=== PATIENT | male | born 1945 | race African-American/Black ===

== ENCOUNTER → 2019-06-13 | Emergency (ER) | payer SELFPAY ==
[~2019-06-13] VITALS: Ht 175.3 cm; Wt 77.1 kg
[2019-06-13 16:22] VITALS: BP 177/75
== END | disposition home or self-care (01) ==
LOC: ER 16:09
DX: I10 Essential (primary) hypertension (principal); F41.9 Anxiety disorder, unspecified; Z76.0 Encounter for issue of repeat prescription

== ENCOUNTER 2021-07-29 13:21 | Inpatient (IN) | payer MEDICARE, OTHER ==
[~2021-07-29] VITALS: Ht 175.3 cm; Wt 83.5 kg
[2021-07-29] MEDS ORDERED: amLODIPine BESYLATE 5 MG TAB PO ONE (13:45)
[2021-07-29] MEDS ORDERED: LABETALOL HCL 5 MG/ML 4ML SYRINGE IV ONE (13:45)
[2021-07-29] MEDS ORDERED: LABETALOL HCL 5 MG/ML ML 20ML VIAL IV ONE (14:12)
[2021-07-29 14:26] LABS: Hemoglobin 13.2 g/dL (13.5-17.5)
[2021-07-29 14:28] LABS: Hematocrit 41.9 % (41.0-53.0); Mean Corpuscular Hemoglobin 24.9 pg (28.0-32.0); Mean Corpuscular Hgb Conc. 31.6 g/dL (32.0-36.0); Mean Corpuscular Volume 78.9 fL (80.0-100.0); Red Blood Cells 5.31 10^6/uL (4.5-5.90); Red Cell Distribution Width 14.6 % (11.8-14.3); White Blood Cell 3.2 10^3/uL (4.4-10.8)
[2021-07-29 14:39] LABS: Band Neutrophils % (manual) 0; Basophils % (manual) 0 (0.0-2.0); Blast Cells 0; Metamyelocytes % 0; Myelocytes % 0; Promyelocytes % 0; Reactive Lymphocytes 0
[2021-07-29 14:42] LABS: Albumin 3.6 g/dL (3.4-5.0); Calcium 8.6 mg/dL (8.5-10.1); Potassium 3.2 mmol/L (3.5-5.1)
[2021-07-29 14:48] LABS: BUN/Creatinine Ratio 11.3; Bilirubin, Total 0.9 mg/dL (0.2-1.0); Total Protein 6.9 g/dL (6.4-8.2)
[2021-07-29 15:40] LABS: Eosinophils % (manual) 2 (0-7); Lymphocytes % (manual) 64 (10.0-50.0); Monocytes % (manual) 2 (0-12)
[2021-07-29] MEDS ORDERED: hydrALAZINE HCL 20 MG/ML VL IV ONE (17:45)
[2021-07-29] MEDS ORDERED: MORPHINE SULFATE INJECTION 2 MG/ML SYRG IV PRN ×2 (18:15→19:15)
[2021-07-29] MEDS ORDERED: NITROGLYCERIN 0.4 MG SL TAB SL PRN (18:15)
[2021-07-29] MEDS ORDERED: LORazepam 2MG/ML-1ML VIAL IV ONE (18:45)
[2021-07-29] MEDS ORDERED: FAMOTIDINE (10MG/ML) 2ML VL IV ONE (19:15)
[2021-07-29] MEDS ORDERED: HYDROcodone-ACET 5/325MG TAB PO ONE (19:15)
[2021-07-29] MEDS ORDERED: LORazepam 0.5 MG TAB PO PRN (19:15)
[2021-07-29] MEDS ORDERED: HYDROcodone-ACET 5/325MG TAB PO PRN (19:15)
[2021-07-29] MEDS ORDERED: LABETALOL HCL 5 MG/ML 4ML SYRINGE IV PRN (19:15)
[2021-07-30] MEDS: hydrALAZINE HCL 20 MG/ML VL IV ONE ×2 (00:11→21:46)
[2021-07-30 01:51] LABS: INR 1.06 (0.9-1.15); Partial Thromboplastin Time 21.4 sec (23.6-33.0)
[2021-07-30] MEDS: hydrALAZINE HCL 20 MG/ML VL IV PRN ×2 (06:41→15:12)
[2021-07-30 08:49] LABS: Alcohol, Urine < 3.0 mg/dL (0-10); Amphetamine Screen, Urine NEGATIVE (NEGATIVE); Barbiturate Scree,Urine NEGATIVE (NEGATIVE); Benzodiazephine Screen, Urine NEGATIVE (NEGATIVE); Cannabinoid Screen, Urine NEGATIVE (NEGATIVE); Cocaine Screen, Urine NEGATIVE (NEGATIVE); Opiate Scree,Urine NEGATIVE (NEGATIVE); Phencyclidine Screen, Urine NEGATIVE (NEGATIVE)
[2021-07-30] MEDS ORDERED: ENOXAPARIN SOD 40 MG/0.4 ML SYRINGE SC SCH (10:00)
[2021-07-30 10:20] LABS: Basophils # (auto) 0 10 ^3/uL (0-0.2); Eosinophils # (auto) 0 10 ^3/uL (0-0.8); Hemoglobin 14.2 g/dL (13.5-17.5); Monocytes # (auto) 0.4 10 ^3/uL (0-1.3); Nucleated Red Blood Cells % 0.1 %; Red Blood Cells 5.66 10^6/uL (4.5-5.90); White Blood Cell 6.5 10^3/uL (4.4-10.8)
[2021-07-30 10:23] LABS: Basophils % (auto) 0.6 % (0.0-2.0); Eosinophils % (auto) 0.7 % (0.0-7.0); Lymphocytes # (auto) 1.7 10 ^3/uL (0.4-5.4); Lymphocytes % (auto) 26.7 % (10.0-50.0); Mean Corpuscular Hgb Conc. 32.2 g/dL (32.0-36.0); Mean Corpuscular Volume 77.8 fL (80.0-100.0); Monocytes % (auto) 6.8 % (0.0-12.0); Neutrophils # (auto) 4.2 10 ^3/uL (1.6-8.6); Neutrophils % (auto) 65.2 % (37.0-80.0); Red Cell Distribution Width 14.5 % (11.8-14.3)
[2021-07-30 10:46] LABS: INR 1.07 (0.9-1.15); Partial Thromboplastin Time 28.9 sec (23.6-33.0)
[2021-07-30 11:30] LABS: Albumin 3.6 g/dL (3.4-5.0); BUN/Creatinine Ratio 8.3; Bilirubin, Total 1.2 mg/dL (0.2-1.0); Phosphorus 1.6 mg/dL (2.5-4.90); Potassium 3.1 mmol/L (3.5-5.1); Total Protein 7.5 g/dL (6.4-8.2)
[2021-07-30 14:36] LABS: Urine Bacteria FEW /hpf (None Seen); Urine Blood Negative /uL (Negative); Urine Specific Gravity 1.015 (1.001-1.035); Urine WBC <1 /hpf (0 - 3)
[2021-07-30] MEDS ORDERED: LORA2TAB89 PO (14:40)
[2021-07-30] MEDS ORDERED: LOSA100T25 PO (14:42)
[2021-07-30] MEDS ORDERED: NIFE1TAB36 PO (14:42)
[2021-07-30] MEDS ORDERED: LOSARTAN POTASSIUM 50 MG TAB PO ONE (19:45)
[2021-07-30] MEDS ORDERED: POTASSIUM CHL 20 Meq TABLET PO ONE (19:45)
[2021-07-30] MEDS ORDERED: POTASSIUM PHOSPHATE 44 MEQ in D5W 5% 250 ML IV ONE (20:00)
[2021-07-30] MEDS ORDERED: FAMOTIDINE (10MG/ML) 2ML VL IV SCH (22:00)
[2021-07-31] MEDS: LABETALOL HCL 5 MG/ML ML 20ML VIAL IV PRN (08:57)
[2021-07-31] MEDS ORDERED: LORazepam 2MG/ML-1ML VIAL IV PRN (09:00)
[2021-07-31] MEDS ORDERED: LORazepam 2MG/ML-1ML VIAL ONE (09:01)
[2021-07-31] MEDS: ENOXAPARIN SOD 40 MG/0.4 ML SYRINGE SC SCH (10:00)
[2021-07-31] MEDS: NIFEdipine ER 30 MG TAB PO SCH (10:00)
[2021-07-31 11:06] VITALS: BP 164/98
[2021-07-31 11:21] LABS: BUN/Creatinine Ratio 8.8; Calcium 9.2 mg/dL (8.5-10.1); Phosphorus 2.2 mg/dL (2.5-4.90); Potassium 3.2 mmol/L (3.5-5.1)
[2021-07-31] MEDS: hydrALAZINE HCL 20 MG/ML VL IV PRN (12:24)
[2021-07-31] MEDS: LOSARTAN POTASSIUM 50 MG TAB PO SCH (22:32)
[2021-08-01] MEDS: hydrALAZINE HCL 20 MG/ML VL IV PRN (04:34)
[2021-08-01 07:02] LABS: Potassium 3.2 mmol/L (3.5-5.1)
[2021-08-01 07:08] LABS: BUN/Creatinine Ratio 13.9; Calcium 9.1 mg/dL (8.5-10.1)
[2021-08-01 08:00] VITALS: BP 125/52
[2021-08-01 09:00] VITALS: BP 125/52
[2021-08-01] MEDS: NIFEdipine ER 30 MG TAB PO SCH (10:14)
[2021-08-01] MEDS: ENOXAPARIN SOD 40 MG/0.4 ML SYRINGE SC SCH (10:14)
[2021-08-01 13:00] VITALS: BP 130/69
[2021-08-01] MEDS ORDERED: POTASSIUM CHL 20 Meq TABLET PO ONE (13:45)
[2021-08-01 17:00] VITALS: BP 131/68
[2021-08-01] MEDS: LOSARTAN POTASSIUM 50 MG TAB PO SCH (22:00)
[2021-08-02 04:51] VITALS: BP 123/53
[2021-08-02 09:00] VITALS: BP 143/65
[2021-08-02] MEDS: NIFEdipine ER 30 MG TAB PO SCH (10:00)
[2021-08-02] MEDS: ENOXAPARIN SOD 40 MG/0.4 ML SYRINGE SC SCH (10:00)
[2021-08-02 13:00] VITALS: BP 135/72
[2021-08-02] MEDS ORDERED: POTASSIUM CHL 10 Meq TABLET PO ONE (16:30)
[2021-08-02 22:00] VITALS: BP 182/81
[2021-08-02] MEDS: LOSARTAN POTASSIUM 50 MG TAB PO SCH (22:22)
[2021-08-02 23:36] VITALS: BP 154/83
[2021-08-03] MEDS ORDERED: LORazepam 0.5 MG TAB PO PRN (00:15)
[2021-08-03 05:00] VITALS: BP 148/72
[2021-08-03 08:46] VITALS: BP 162/74
[2021-08-03] MEDS: ENOXAPARIN SOD 40 MG/0.4 ML SYRINGE SC SCH (10:00)
[2021-08-03 12:41] VITALS: BP 148/80
[2021-08-03] MEDS: NIFEdipine ER 30 MG TAB PO SCH (15:30)
[2021-08-03 17:00] VITALS: BP 150/98
[2021-08-03 20:15] VITALS: BP 174/84
[2021-08-03] MEDS: LOSARTAN POTASSIUM 50 MG TAB PO SCH (21:03)
[2021-08-03 22:00] VITALS: BP 162/79
[2021-08-03] MEDS: LABETALOL HCL 5 MG/ML ML 20ML VIAL IV PRN (22:30)
[2021-08-04 05:00] VITALS: BP 141/74
[2021-08-04] MEDS: ENOXAPARIN SOD 40 MG/0.4 ML SYRINGE SC SCH (10:00)
[2021-08-04] MEDS: NIFEdipine ER 30 MG TAB PO SCH (10:00)
[2021-08-04 13:00] VITALS: BP 136/73
[2021-08-04 16:38] VITALS: BP 145/76
[2021-08-04 20:00] VITALS: BP 151/80
[2021-08-04 20:57] VITALS: BP 151/80
[2021-08-04] MEDS: LOSARTAN POTASSIUM 50 MG TAB PO SCH (21:49)
[2021-08-05 00:26] LABS: BUN/Creatinine Ratio 13.3; Calcium 8.8 mg/dL (8.5-10.1); Potassium 4.1 mmol/L (3.5-5.1)
[2021-08-05 05:22] VITALS: BP 152/72
[2021-08-05] MEDS: ENOXAPARIN SOD 40 MG/0.4 ML SYRINGE SC SCH (08:58)
[2021-08-05 09:00] VITALS: BP 172/91
[2021-08-05] MEDS: NIFEdipine ER 30 MG TAB PO SCH (10:00)
[2021-08-05 13:00] VITALS: BP 172/82
[2021-08-05] MEDS ORDERED: NIFE1TAB36 PO (16:25)
[2021-08-05] MEDS ORDERED: LOSA100T25 PO (16:25)
[2021-08-05 16:30] VITALS: BP 197/80
[2021-08-05] MEDS ORDERED: cloNIDine HCL 0.1 MG TAB PO ONE (16:30)
[2021-08-05 18:36] VITALS: BP 139/77
[2021-08-05 21:00] VITALS: BP 148/77
[2021-08-05] MEDS: LOSARTAN POTASSIUM 50 MG TAB PO SCH (23:08)
[2021-08-06 05:00] VITALS: BP 159/87
[2021-08-06] MEDS: ENOXAPARIN SOD 40 MG/0.4 ML SYRINGE SC SCH (09:00)
[2021-08-06] MEDS: NIFEdipine ER 30 MG TAB PO SCH (09:00)
== END 2021-08-06 17:37 | disposition home or self-care (01) | DRG 291 ==
LOC: ER 13:21 → EDBD 13:21 → TELE 18:13 → TELE-WESTW 07-31 10:16
PROVIDERS: ADMIT Hospitalist; ATTEND Internal Medicine
DX: I11.0 Hypertensive heart disease with heart failure (principal); I50.33 Acute on chronic diastolic (congestive) heart failure; I16.1 Hypertensive emergency; I67.4 Hypertensive encephalopathy; F41.9 Anxiety disorder, unspecified; E66.01 Morbid (severe) obesity due to excess calories; Z20.822 Contact with and (suspected) exposure to COVID-19; E78.5 Hyperlipidemia, unspecified; F32.A Depression, unspecified; Z68.27 Body mass index [BMI] 27.0-27.9, adult; Z86.73 Personal history of transient ischemic attack (TIA), and cerebral infarction without residual deficits; Z79.899 Other long term (current) drug therapy
CPT/HCPCS: 36415; 70450; 71045; 80048; 80053; 80061; 80307; 81001; 83036; 83735; 83880; 84100; 84443; 84484; 85007; 85025; 85027; 85379; 85610; 85730; 87040; 87086; 87426; 93005; 93306; 96374; 96375; 97163; G0378; J3490; J7060

== ENCOUNTER 2022-07-16 14:07 | Emergency (ER) | payer MEDICARE, BC ==
[~2022-07-16] VITALS: Ht 177.8 cm; Wt 110.0 kg
[~2022-07-16 14:07] MED LIST: LORA2TAB89 PO; LOSA100T25 PO; NIFE1TAB36 PO
[2022-07-16] MEDS ORDERED: cloNIDine HCL 0.1 MG TAB PO ONE (14:30)
[2022-07-16] MEDS ORDERED: LORA2TAB89 PO (14:40)
[2022-07-16] MEDS ORDERED: LOSA100T25 PO (14:40)
[2022-07-16] MEDS ORDERED: NIFE1TAB36 PO (14:40)
[2022-07-16 16:06] VITALS: BP 149/83
== END 2022-07-16 16:09 | disposition home or self-care (01) ==
LOC: ER 14:07 → EDBD 14:07 → ER 16:09
DX: I16.0 Hypertensive urgency (principal); F41.8 Other specified anxiety disorders; Z79.899 Other long term (current) drug therapy; Z88.1 Allergy status to other antibiotic agents

== ENCOUNTER 2025-01-30 10:55 | Outpatient (CLI) | payer MEDICARE, BC ==
[2025-01-30 11:57] LABS: Urine Protein, UAD 1+ (Negative)
[2025-01-30 12:19] LABS: Hematocrit 38.7 % (41.0-53.0); Hemoglobin 12.3 g/dL (13.5-17.5); Mean Corpuscular Hemoglobin 25.6 pg (28.0-32.0); Mean Corpuscular Volume 80.3 fL (80.0-100.0); Nucleated Red Blood Cells % 0.2 %
[2025-01-30 12:41] LABS: Alanine Aminotransferase 16 U/L (7-40); Albumin 4.7 g/dL (3.2-4.8); Alkaline Phosphatase 84 U/L (46-116); Anion Gap 8 (5-15); BUN/Creatinine Ratio 7.9 (10.0-20.0); Bilirubin, Total 1.0 mg/dL (0.2-1.0); Blood Urea Nitrogen 10 mg/dL (9-23); Calcium 9.5 mg/dL (8.7-10.4); Carbon Dioxide 29 mmol/L (20-31); Glucose 100 mg/dL (74-106); HDL Cholesterol 48 mg/dL (40-59); Potassium 4.4 mmol/L (3.5-5.1); Sodium 144 mmol/L (136-145); Total Protein 7.2 g/dL (5.7-8.2)
[2025-01-30 12:54] LABS: Chloride 107 mmol/L (98-107); Cholesterol 243 mg/dL (< 200); Triglycerides 158 mg/dL (< 150)
== END 2025-01-30 17:00 | disposition home or self-care (01) ==
LOC: LAB 10:55
PROVIDERS: ATTEND Nurse Practitioner
DX: I10 Essential (primary) hypertension (principal); E78.5 Hyperlipidemia, unspecified; R73.9 Hyperglycemia, unspecified
CPT/HCPCS: 36415; 80053; 80061; 81001; 83036; 84443; 85025

== ENCOUNTER 2025-04-09 20:28 | Inpatient (IN) | payer MEDICARE, BC ==
[~2025-04-09] VITALS: Ht 170.2 cm; Wt 81.0 kg
--- NOTE | 2025-04-09 21:56 | ED.PDOC ---
History of Present Illness HPI Comments 79-year-old male presents with chief complaint of a urinary retention. Patient is a poor historian. He reports on being a resident from [facility] and was sent over by faculty, due to them reporting on patient being altered. Patient states on not feeling altered and only reports being unable to pee all day, today. No reported associated abdominal pain, penile pain, fever, chills, or further symptoms. REVIEW OF SYSTEMS: General: No fever, no chills, HEENT: No neck pain, no blurred vision Cardiac: No chest pain. No palpitations. Lungs: No shortness of breath, GI: No abdominal pain, no vomiting : Urine retention Musculoskeletal: No joint pain , no back pain Skin: No rash, no wound Neuro: No headache, no dizziness, no syncope PHYSICAL EXAM: General: Awake, alert and oriented. No acute distress. Skin: Skin in warm, dry and intact without rashes or lesions. HEENT: The head is normocephalic and atraumatic. Conjunctivae are clear without exudates or hemorrhage. Sclera is non-icteric. Neck: Normal range of motion. No JVD. Cardiac: Regular rate Respiratory: No signs of respiratory distress. No Stridor. Extremities: Upper and lower extremities are atraumatic in appearance without deformity. Abdomen:. No suprapubic tenderness Neurological: The patient is awake, alert and oriented to person, place, and time with normal speech. Speech is clear. There is no facial asymmetry. Psychiatric: Appropriate mood and affect. Good judgement and insight. Chief Complaint: Urinary Time Seen by MD: 21:30 Primary Care Provider: UNKNOWN Reviewed Notes: Nurses Notes, Medications, Allergies Allergies: Coded Allergies: NO KNOWN ALLERGIES (Unverified , 04/10/25) Home Meds Active Scripts Tamsulosin Hcl (Flomax) 0.4 Mg Cap, 0.4 MG PO QPM for 30 Days, #30 CAP 3 Refills Prov:YENIFER AGUILAR 04/11/25 Nifedipine (Nifedipine ER) 30 Mg Tab, 90 MG PO DAILY for 30 Days, #90 TAB Prov:KATE PIERCE MD 07/16/22 Losartan Potassium & Hydrochlo (Hyzaar) 1 Tab Tab, 150 MG PO DAILY for 30 Days, #30 TAB Prov:KATE PIERCE MD 07/16/22 Information Source: Patient Mode of Arrival: EMS Severity: Moderate Timing: Hours Duration: Since onset Prehospital treatment: None Past Medical History PAST MEDICAL HISTORY: Anxiety, HTN Past Medical History (Other): Cardiomegaly Psych disorder Surgical History: Denies all surgeries Family History Family History: Unknown Social History Smoker: Non-Smoker Alcohol: Denies ETOH Use Drugs: Denies Drug Use Lives In: Home Was a procedure done? Was a procedure done?: No Differential Dx Considerations may include: UTI, urinary obstruction, urinary outlet obstruction, renal failure, other X-Ray, Labs, Meds, VS Vital Signs Date Time Temp Pulse Resp B/P (MAP) Pulse Ox O2 Delivery O2 Flow Rate FiO2 04/09/25 23:49 98.0 70 20 157/72 (100) 95 98.0 04/09/25 20:35 98.7 73 18 137/65 97 98.7 Lab Test 04/09/25 21:50 Range/Units White Blood Count 7.7 4.4-10.8 10^3/uL Red Blood Count 5.29 4.5-5.90 10^6/uL Hemoglobin 13.5 13.5-17.5 g/dL Hematocrit 42.1 41.0-53.0 % Mean Corpuscular Volume 79.5 L 80.0-100.0 fL Mean Corpuscular Hemoglobin 25.6 L 28.0-32.0 pg Mean Corpuscular Hemoglobin Concent 32.2 32.0-36.0 g/dL Red Cell Distribution Width 14.1 11.8-14.3 % Platelet Count 170 140-450 10^3/uL Mean Platelet Volume 10.7 6.9-10.8 fL Neutrophils (%) (Auto) 61.4 37.0-80.0 % Lymphocytes (%) (Auto) 29.5 10.0-50.0 % Monocytes (%) (Auto) 8.1 0.0-12.0 % Eosinophils (%) (Auto) 0.6 0.0-7.0 % Basophils (%) (Auto) 0.4 0.0-2.0 % Neutrophils # (Auto) 4.7 1.6-8.6 10 ^3/uL Lymphocytes # (Auto) 2.3 0.4-5.4 10 ^3/uL Monocytes # (Auto) 0.6 0-1.3 10 ^3/uL Eosinophils # (Auto) 0 0-0.8 10 ^3/uL Basophils # (Auto) 0 0-0.2 10 ^3/uL Nucleated Red Blood Cells 0.1 % Sodium Level 144 136-145 mmol/L Potassium Level 3.6 3.5-5.1 mmol/L Chloride Level 105 98-107 mmol/L Carbon Dioxide Level 27 20-31 mmol/L Anion Gap 12 5-15 Blood Urea Nitrogen 36 H 9-23 mg/dL Creatinine 2.60 H 0.700-1.30 mg/dL Glomerular Filtration Rate Calc 24 >90 mL/min BUN/Creatinine Ratio 13.8 10.0-20.0 Serum Glucose 123 H 74-106 mg/dL Calcium Level 9.7 8.7-10.4 mg/dL Time of 1ST Reevaluation: 22:00 Reevaluation 1ST: Unchanged Patient Education/Counseling: Other (For admission) Family Education/Counseling: No Family Present SEPSIS Sepsis Screen Date sepsis recognized/suspect: Apr 09, 2025 Time Sepsis recognized/suspect: 2030 Recent Procedure: No On Antibiotic Therapy: No Respiratory Rate >20: No Heart Rate >90: No Temp<36 C (96.8 F) or >38.3 C: No SBP <90 or MAP <65 mmHG: No New Acute Mental Status Change: No Is the patient on CPAP, BIPAP,: No Physician Orders Bladder (04/09/25 21:37) Straightcath If Unable To Void (04/09/25 22:42) Head Without Contrast (04/09/25 22:44) Vital Signs Date Time Temp Pulse Resp B/P (MAP) Pulse Ox O2 Delivery O2 Flow Rate FiO2 04/09/25 23:49 98.0 70 20 157/72 (100) 95 98.0 04/09/25 20:35 98.7 73 18 137/65 97 98.7 Laboratory Tests Test 04/09/25 21:50 White Blood Count 7.7 10^3/uL (4.4-10.8) Departure 1 Departure Time of Disposition: 22:43 Impression: Primary Impression: Unable to void Disposition: ADMITTED INPATIENT Condition: Stable e-Prescriptions Tamsulosin Hcl (Flomax) 0.4 Mg Cap 0.4 MG PO QPM for 30 Days, #30 CAP 3 Refills Prov: YENIFER AGUILAR RESIDENT 04/11/25 Comments MDM: Patient is stabilized in the emergency department. Patient admitted to hospitalist service for further treatment, evaluation and monitoring. Extensive evaluation was performed in attempt to identify or rule out: (See differential diagnosis section) The following tests were ordered, and results were reviewed by me and discussed with patient: (See diagnostic results section) The following test were independently interpreted by me: N/A I reviewed and agreed with the following test results read by other providers: N/A I reviewed the following notes from the pt's past medical encounters: July 29, 2022 encounter for hypertensive urgency. Decision regarding hospitalization or escalation of hospital level of care: Risk and benefits of admission for further treatment of patient's condition was considered. Due to patient's current clinical condition, high risk of decline and poor outcome if discharged and need for further inpatient management and monitoring, patient will be admitted to the hospital. Critical Care Note Critical Care Time?: No Stability Stability form required: No Heart Score Heart Score: Heart Score Response (Comments) Value History N/A 0 EKG N/A 0 Age N/A 0 Risk Factors N/A 0 Troponin N/A 0 Total 0 I personally scribed for ERIC VITALE MD ([email or web address]) on 04/09/25 at 21:56. Electronically submitted by Davion Burch ([email or web address]). ERIC VITALE MD Apr 09, 2025 21:56
[2025-04-09 22:13] LABS: Chloride 105 mmol/L (98-107); Potassium 3.6 mmol/L (3.5-5.1); Sodium 144 mmol/L (136-145)
[2025-04-09 22:14] LABS: Anion Gap 12 (5-15); Calcium 9.7 mg/dL (8.7-10.4); Carbon Dioxide 27 mmol/L (20-31)
[2025-04-09 22:16] LABS: Hematocrit 42.1 % (41.0-53.0); Hemoglobin 13.5 g/dL (13.5-17.5); Mean Corpuscular Hemoglobin 25.6 pg (28.0-32.0); Mean Corpuscular Volume 79.5 fL (80.0-100.0); Nucleated Red Blood Cells % 0.1 %
[2025-04-09 22:19] LABS: BUN/Creatinine Ratio 13.8 (10.0-20.0)
[2025-04-09 22:21] LABS: Blood Urea Nitrogen 36 mg/dL (9-23); Glucose 123 mg/dL (74-106)
--- NOTE | 2025-04-09 22:22 | DVH ---
Exam: US BLADDER History: Bladder, suspected urinary retention Comparison: None Date: 04/09/2025 09:56 PM Technique: Grayscale and color Doppler ultrasound of the pelvis was obtained. Pre-and postvoid images of the bladder were obtained. Findings: The prostate is enlarged measuring 4.6 x 5.3 x 4.6 cm. The prevoid bladder volume measures 207.8 cc. The patient was not able to void. The urinary bladder a ppears distended with thickened wall. IMPRESSION: 1. Distended urinary bladder with wall thickening. The patient was unable to void. 2. Prostatomegaly. END IMPRESSION:
--- NOTE | 2025-04-09 23:14 | DVH ---
EXAM: CT HEAD WITHOUT CONTRAST INDICATION: Confusion TECHNIQUE: CT of the head without intravenous contrast. Radiation Dose : 1. Head: CT Dose: CTDI volume is 54.3 mGy. Dose-length product is 870.48 mGy*cm The dose indicators for CT are the volume Computed Tomography (CT) Dose Index (CTDIvol) and the Dose Length Product (DLP), and are measured in units of mGy and mGy-cm, respectively. These indicators are not patient dose, but values generated from the CT scanner acquisition factors. The report includes radiation exposure data for exposures received during this examination. COMPARISON: HEAD WITHOUT CONTRAST on DOS: 07/30/21, HEAD WITHOUT CONTRAST on DOS: 07/29/21 FINDINGS: Motion artifact degrades fine detail. No acute territorial infarct, intracranial hemorrhage, or mass effect. There are global involutional changes with compensatory prominence of the ventricles and sulci. Patchy periventricular and subcorti estella white matter hypoattenuation is nonspecific but may be related to small vessel ischemic disease. Chronic deep cerebral lacunar infarcts. The orbits are normal. The paranasal sinuses and mastoid air cells are clear. The osseous structures are unremarkable. IMPRESSION: 1. No acute territorial infarct, intracranial hemorrhage, or mass effect. 2. Age-related involutional changes. Chronic microvascular changes. Chronic lacunar infarcts. 3. If clinical symptoms persist, MRI may be beneficial in further evaluation. Radiation optimization: All CT scans at this facility use at least one of these dose optimization dale hniques: automated exposure control mA and/or kV adjustment per patient size (includes targeted exam s where dose is matched to clinical indication) or iterative reconstruction.
--- NOTE | 2025-04-09 23:59 | DVHHPRES ---
History of Present Illness Resident Creating Document: MARLENE VARGAS RESIDENT History of Present Illness Patient is a 79-year-old male with past medical history of HTN, Anxiety, PTSD, presented to [facility] ED with complaint of urinary retention. Patient reports being a resident at [facility] and was sent to the ED by facility staff due to concerns of altered mental status. However, the patient denies feeling altered and states his primary issue is being unable to urinate all day today. He denies associated abdominal pain, penile pain, fever, chills, or other symptoms. On evaluation in the ED, patient is afebrile, blood pressure are 157/72 mmHg. Initial laps show BUN 36, Creatinine 2.60. Bladder ultrasound shows distended urinary bladder with wall thickening and prostatomegaly. The patient was voided yesterday around 11:00 pm with a yellow color and large amount. Patient is admitted for further evaluation and management. Cardiovascular: HTN Psych: Anxiety Review of Systems Review of Systems Eyes: No Pain, No Vision change, No Conjunctivae inflammation, No Eyelid inflammation, No Other, No Redness ENT: No Ear pain, No Ear discharge, No Nose pain, No Nose discharge, No Nose congestion, No Mouth pain, No Mouth swelling, No Throat pain, No Throat swelling, No Other Cardiovascular: No Chest Pain, No Palpitations, No Orthopnea, No Paroxysmal No Dyspnea, No Edema, No Lt Headedness, No Other Respiratory: No Cough, No Dry, No Shortness of breath, No SOB with exertion, No Wheezing, No Hemoptysis, No Pleuritic Pain, No Sputum, No Other Gastrointestinal: No Nausea, No Vomiting, No Abdominal Pain, No Diarrhea, No Constipation, No Melena, No Hematochezia, No Other Genitourinary: No Dysuria, No Frequency, No Incontinence, No Hematuria, Retention, No Other Musculoskeletal: No other, No neck pain, No shoulder pain, No arm pain, No back pain, No hand pain, No leg pain, No foot pain Skin: No Rash, No Lesions, No Jaundice, No Bruising, No Other Allergies: Coded Allergies: NO KNOWN ALLERGIES (Unverified , 04/10/25) Medications Current Medications Medications Dose Ordered Sig/Hector Route Start Time Stop Time Status Last Admin Dose Admin Sodium Chloride 10 ml Q8HR IV 04/10/25 06:00 UNV Exam Vital Signs Vital Signs Date Time Temp Pulse Resp B/P (MAP) Pulse Ox O2 Delivery O2 Flow Rate FiO2 04/09/25 23:49 98.0 70 20 157/72 (100) 95 98.0 Exam General Appearance: Cooperative. Well developed. Well nourished. NAD Head Exam: Normal inspection Neck Exam: Normal inspection. Non-tender. Normal alignment Pulmonary/Respiratory: Chest non-tender. Clear bilateral breath sounds, no crackles, no wheezing. Cardiovascular/Chest: Regular rate and rhythm. No murmurs. No JVD. Peripheral Pulses: 2+ Radial (R). 2+ Radial (L). 2+ Pedal (R). 2+ Pedal (L) Abdominal Exam: Normal bowel sounds. Soft. normal abdomen, no visible veins, Nontender. No hepatospenomegaly. No masses Ankle Exam: Negative ankle edema Lower extremities: Negative lower extremity edema Neuro/Mental Status: A&O x4. Coherent. Thoughts/Psych: Normal thought pattern. Appropriate mood and affect. Good judgement and insight Skin Exam: Normal inspection. Normal color. Warm. Dry Labs/Xrays Labs Test 04/09/25 21:50 Range/Units White Blood Count 7.7 4.4-10.8 10^3/uL Red Blood Count 5.29 4.5-5.90 10^6/uL Hemoglobin 13.5 13.5-17.5 g/dL Hematocrit 42.1 41.0-53.0 % Mean Corpuscular Volume 79.5 L 80.0-100.0 fL Mean Corpuscular Hemoglobin 25.6 L 28.0-32.0 pg Mean Corpuscular Hemoglobin Concent 32.2 32.0-36.0 g/dL Red Cell Distribution Width 14.1 11.8-14.3 % Platelet Count 170 140-450 10^3/uL Mean Platelet Volume 10.7 6.9-10.8 fL Neutrophils (%) (Auto) 61.4 37.0-80.0 % Lymphocytes (%) (Auto) 29.5 10.0-50.0 % Monocytes (%) (Auto) 8.1 0.0-12.0 % Eosinophils (%) (Auto) 0.6 0.0-7.0 % Basophils (%) (Auto) 0.4 0.0-2.0 % Neutrophils # (Auto) 4.7 1.6-8.6 10 ^3/uL Lymphocytes # (Auto) 2.3 0.4-5.4 10 ^3/uL Monocytes # (Auto) 0.6 0-1.3 10 ^3/uL Eosinophils # (Auto) 0 0-0.8 10 ^3/uL Basophils # (Auto) 0 0-0.2 10 ^3/uL Nucleated Red Blood Cells 0.1 % Sodium Level 144 136-145 mmol/L Potassium Level 3.6 3.5-5.1 mmol/L Chloride Level 105 98-107 mmol/L Carbon Dioxide Level 27 20-31 mmol/L Anion Gap 12 5-15 Blood Urea Nitrogen 36 H 9-23 mg/dL Creatinine 2.60 H 0.700-1.30 mg/dL Glomerular Filtration Rate Calc 24 >90 mL/min BUN/Creatinine Ratio 13.8 10.0-20.0 Serum Glucose 123 H 74-106 mg/dL Calcium Level 9.7 8.7-10.4 mg/dL SEPSIS Sepsis Screen Date sepsis recognized/suspect: Apr 09, 2025 Time Sepsis recognized/suspect: 2030 Recent Procedure: No On Antibiotic Therapy: No Respiratory Rate >20: No Heart Rate >90: No Temp<36 C (96.8 F) or >38.3 C: No SBP <90 or MAP <65 mmHG: No New Acute Mental Status Change: No Is the patient on CPAP, BIPAP,: No Physician Orders Urinalysis (04/09/25 21:37) Bladder (04/09/25 21:37) Straightcath If Unable To Void (04/09/25 22:42) Insert Marc Catheter QSHIFT (04/09/25 22:42) Head Without Contrast (04/09/25 22:44) Admit (04/09/25 23:54) Allergies (04/09/25 23:54) Code Status (04/09/25 23:54) Sodium Chloride Lock (Saline Lock Ns) (04/10/25 06:00) Complete Blood Count (04/10/25 04:00) Comprehensive Metabolic Panel (04/10/25 04:00) Cardiac Diet-2gna,Lofat,Lochol (04/10/25 Breakfast) Condition: Fair (04/09/25 23:54) Stat Ekg For Chest Pain (04/09/25 23:54) Notify Md Of Changes From Base (04/09/25 23:54) Appliance Technician For 24 Hours (04/09/25 23:54) Emergency Dysrhythmia Protocol (04/09/25 23:54) Rhythm Strips Once Every Shift (04/09/25 23:54) Vital Signs Date Time Temp Pulse Resp B/P (MAP) Pulse Ox O2 Delivery O2 Flow Rate FiO2 04/09/25 23:49 98.0 70 20 157/72 (100) 95 98.0 04/09/25 20:35 98.7 73 18 137/65 97 98.7 Laboratory Tests Test 04/09/25 21:50 White Blood Count 7.7 10^3/uL (4.4-10.8) Assessment/Plan Assessment/Plan Acute urinary retention secondary to benign prostatic hyperplasia US BLADDER: Distended urinary bladder with wall thickening. The patient was unable to void. Prostatomegaly. Abdomen/Pelvis CT: Marked prostatomegaly. Mild wall thickening about the urinary bladder. PSA Total+% Free Tamsulosin hydrochloride 0.4 mg po qpm TANI on CKD likely due to VMN/hemodynamically mediated Abdomen/Pelvis CT: Mild wall thickening about the urinary bladder. cystitis. Monitor renal function Avoid nephrotoxic drugs Altered mental status, likely metabolic encephalopathy secondary to UTI CT of the head without intravenous contrast: No acute territorial infarct, intracranial hemorrhage, or mass effect. Age-related involutional changes. Chronic microvascular changes. Chronic lacunar infarcts. Ceftriaxone IV daily Urinary bacterial culture Urinalysis Hypertension, uncontrolled Nifedipine 90 MG PO daily Diet: Renal PUD prophylaxis: protonix 40mg DVT prophylaxis: Levonox 40mg Goals of care: Full code, discussed for >16 minutes on 04/10/25 Plan discussed with patient Plan discussed with Dr. Estrada Plan discussed with: Patient My Orders Orders - MARLENE VARGAS RESIDENT Procedure Category Date Status Time Admit ADMIT 04/09/25 Transmitted 23:54 Allergies RYAN 04/09/25 In Process 23:54 Code Status CODE 04/09/25 Transmitted 23:54 Sodium Chloride Lock PHA 04/10/25 Logged (Saline Lock Ns) 06:00 Complete Blood Count LAB 04/10/25 Verified 04:00 Comprehensive LAB 04/10/25 Verified Metabolic Panel 04:00 Cardiac DIET 04/10/25 Transmitted Diet-2gna,Lofat,Lochol Breakfast Condition: Fair [facility] 04/09/25 In Process 23:54 Stat Ekg For Chest [facility] 04/09/25 In Process Pain 23:54 Notify Md Of Changes [facility] 04/09/25 In Process From Base 23:54 Appliance Technician For [facility] 04/09/25 In Process 24 Hours 23:54 Emergency Dysrhythmia [facility] 04/09/25 In Process Protocol 23:54 Rhythm Strips Once [facility] 04/09/25 In Process Every Shift 23:54 Date of Service: Apr 10, 2025 Billing Provider: NORBERTO ESTRADA MD Common Visit Codes: 71375-TUAOYIY INP/OBS CARE (HIGH) Secondary Visit Codes: 43326-[id number] CARE PLAN 30 MINUTES MARLENE VARGAS RESIDENT Apr 09, 2025 23:59 NORBERTO ESTRADA MD Apr 10, 2025 11:56
--- NOTE | 2025-04-10 01:00 | DVH ---
Exam: CT CT AB PEL WO CON-NO ORAL OR IV History: urinary retension Comparison Study: None TECHNIQUE: Multidetector CT of the abdomen and pelvis was performed from lung bases to pubic symphysi s. Imaging was performed without IV contrast. Axial, coronal, and sagittal multiplanar reformats were obtained from the axial data set by the technologist. RADIATION DOSE: CTDI vol 9.01 mGy. DLP 518.46 mGy.cm Findings: Limited evaluation of the solid organs in the absence of IV contrast. Lungs: The lung bases are clear. Liver: Scattered hepatic cysts and additional too small to characterize lesions. Spleen: Unremarkable. Pancreas: Unremarkable. Gallbladder: Cholelithiasis/biliary sludge. Adrenals: Unremarkable Kidneys: Unremarkable. Pelvic Viscera: Marked prostatomegaly. Mild wall thickening about the urinary bladder. Vasculature: Atherosclerotic aortoiliac calcification. Retroperitoneum: Unremarkable. Bowel: No bowel obstruction. Musculoskeletal: Unremarkable. Soft tissues: Unremarkable Impression: 1. Findings as above may reflect cystitis in the appropriate clinical setting. 2. Prostatomegaly. 3. Additional incidental findings as detailed.
[2025-04-10] MEDS: TAMSULOSIN HYDROCHLORIDE 0.4 MG CAP PO ONE (01:21)
[2025-04-10 02:24] LABS: Urine Protein, UAD Negative (Negative)
[2025-04-10] MEDS ORDERED: NIFE90TA75 PO (03:14)
[2025-04-10] MEDS ORDERED: LOSA100T25 PO (03:14)
[2025-04-10 03:18] LABS: Amphetamine Screen, Urine Neg (NEGATIVE); Barbiturate Scree,Urine Neg (NEGATIVE); Benzodiazephine Screen, Urine Neg (NEGATIVE); Cannabinoid Screen, Urine Neg (NEGATIVE); Cocaine Screen, Urine Neg (NEGATIVE); Opiate Scree,Urine Neg (NEGATIVE); Phencyclidine Screen, Urine Neg (NEGATIVE)
[2025-04-10 05:00] VITALS: BP 122/66; PULSE 69; RESP 19; TEMP 97.8; O2SAT 97
[2025-04-10] MEDS: SODIUM CHLOR 0.9% PF (SALINE LOCK) 10ML VIAL/SYR IV SCH (05:08)
[2025-04-10 06:02] LABS: Hematocrit 37.5 % (41.0-53.0); Hemoglobin 11.9 g/dL (13.5-17.5); Mean Corpuscular Hemoglobin 25.1 pg (28.0-32.0); Mean Corpuscular Volume 79.1 fL (80.0-100.0); Nucleated Red Blood Cells % 0.3 %
[2025-04-10 06:21] LABS: Alanine Aminotransferase 12 U/L (7-40); Albumin 4.3 g/dL (3.2-4.8); Alkaline Phosphatase 79 U/L (46-116); Anion Gap 9 (5-15); BUN/Creatinine Ratio 14.6 (10.0-20.0); Bilirubin, Direct 0.2 mg/dL (<0.3); Bilirubin, Total 0.6 mg/dL (0.2-1.0); Calcium 9.1 mg/dL (8.7-10.4); Carbon Dioxide 29 mmol/L (20-31); Chloride 106 mmol/L (98-107); Sodium 144 mmol/L (136-145); Total Protein 7.0 g/dL (5.7-8.2)
[2025-04-10 06:28] LABS: Blood Urea Nitrogen 31 mg/dL (9-23); Glucose 146 mg/dL (74-106); Potassium 3.3 mmol/L (3.5-5.1)
[2025-04-10 09:00] VITALS: BP 133/70; PULSE 73; RESP 16; TEMP 97.8; O2SAT 93
[2025-04-10] MEDS: SODIUM CHLORIDE 0.9% 1,000 ML IV ONE (10:12)
--- NOTE | 2025-04-10 10:51 | DVH ---
RENAL ULTRASOUND History: TANI Comparison: None Technique: Multiple real-time sonographic images of the kidney and bladder were obtained in conjuncti on with Doppler imaging. Findings: The right kidney measures 8.2 cm and demonstrates no evidence of hydronephrosis, perinephric fluid co llection, or shadowing stone. The left kidney measures 9.6 cm and demonstrates no evidence of hydronephrosis, perinephric fluid col lection, or shadowing stone. Urinary bladder: Prevoid urinary bladder volume is 280 mL. Prostate volume 66 cc. Impression: No hydronephrosis. Small size right kidney. Enlarged prostate with volume of 66 cc. Recommend urology consultation and correlation with PSA pedro kay.
[2025-04-10 13:00] VITALS: BP 104/68; PULSE 80; RESP 17; TEMP 97.9; O2SAT 95
[2025-04-10 14:56] LABS: Hematocrit 39.2 % (41.0-53.0); Hemoglobin 12.3 g/dL (13.5-17.5); Mean Corpuscular Hemoglobin 25.3 pg (28.0-32.0); Mean Corpuscular Volume 80.4 fL (80.0-100.0); Nucleated Red Blood Cells % 0.1 %
--- NOTE | 2025-04-10 15:09 | DVHPNRES ---
Progress Note Date Seen: Apr 10, 2025 Resident Creating Document: PHOENIX KWON RESIDENT Medical Necessity Reason Pt with a Central, PICC or Fol: No Subjective Review of Systems Patient is a 79-year-old male with past medical history of HTN, Anxiety, PTSD, presented to [facility] [place] [facility] ED with complaint of urinary retention. Patient reports being a resident at [facility] and was sent to the ED by facility staff due to concerns of altered mental status. However, the patient denies feeling altered and states his primary issue is being unable to urinate all day today. He denies associated abdominal pain, pen ile pain, fever, chills, or other symptoms.Bladder ultrasound showed distended urinary bladder with wall thickening and prostatomegaly. Patient admits to decreased hydration and prolonged fasting. He also complains of increased frequency of micturition especially at night. PMHx:HTN, Anxiety, PTSD, CVA, dyslipidemia, right-sided blindness PSHx: Knee surgery patient does not remember when Family history: No relevant family history Social history: Denies smoking alcohol or drug use Allergic history: None General: patient denies fever, fatigue, weaknes, sweating, any recent changes in appetite and weight HEENT: No headaches, visiual changes, hearing loss, tinnitus, nasal congestion and discharge, and sore throat. Cardiovascular: Denies chest pain, palpitations, dyspnea on exertion, orthopnea, or claudication. Respiratory: No cough, and wheezing. Gastrointestinal: Denies nausea, vomiting, dysphagia, odynophagia, heartburn, abdominal pain, flatulence, bloating, diarrhea, constipation, change in stool, or blood in stool. Genitourinary: Complains of urinary frequency, No dysuria, hematuria, discharge, urgency, nocturia, incontinence, and urinary retention. Endocrine: No heat or cold intolerance, polydipsia, polyuria, and polyphagia. Neurological: No dizziness, extremity weakness and numbness, tremors, gait disturbance, seizures, and memory impairment. Psychiatric: Denies depression, anxiety,or insomnia. Musculoskeletal: Denies neck pain, stiffness and swelling, back pain, muscle weakness, joint pain, stiffness, swelling, or limited range of motion. Skin: No rashes, itching, skin lesion, changes in hair, nail, skin texture and breast. Hematologic/Lymphatic: Denies easy bruising, bleeding tendencies, or lymph node enlargement. Objective vital signs Vital Sign Date Time Temp Pulse Resp B/P (MAP) Pulse Ox O2 Delivery O2 Flow Rate FiO2 04/10/25 10:11 133/70 04/10/25 09:00 97.8 73 16 93 97.8 04/10/25 08:00 Room Air* 0 21 Total Intake and Output 04/09/25 04/09/25 04/10/25 15:00 23:00 07:00 Intake Total 0 ml Balance 0 ml medications Current Medications Medications Dose Ordered Sig/Hector Route Start Time Stop Time Status Last Admin Dose Admin Sodium Chloride 10 ml Q8HR IV 04/10/25 06:00 04/10/25 13:14 10 ML Nifedipine 90 mg DAILY PO 04/10/25 10:00 04/10/25 10:11 90 MG Tamsulosin HCl 0.4 mg QPM PO 04/10/25 18:00 Examination General Appearance: Alert, Oriented X3, Cooperative, No acute distress HEENT: Atraumatic, PERRLA, EOMI, Mucous membrane moist/pink Respiratory: Clear to auscultation, Normal air movement Cardiovascular: Regular rate, Normal S1, Normal S2, No murmurs, no chest wall tenderness Abdominal: Normal bowel sounds, Soft, No tenderness, No hepatospenomegaly, No masses Extremities: No clubbing, No cyanosis, No edema, Normal pulses, No tenderness/swelling Skin: No rashes, No breakdown, No significant lesion Neuro: Normal gait, Normal speech, Strength at 5/5 X4 ext, Normal tone, Sensation intact, Cranial nerves 3-12 NL, Reflexes 2+ Psych/Mental Status: Mental status NL, Mood NL laboratory and microbiology Test 04/10/25 14:35 Range/Units Serum Glucose Pending Problem List/Assessment/Plan Problem List/Assessment/Plan Assessment and plan TANI on CKD Possibly psych: Secondary to dehydration or obstruction from prostatomegaly On IV fluids Continue Tamsulosin Follow creatinine levels Essential hypertension Continue nifedipine Dyslipidemia Continue home medications Anxiety outpatient follow-up with PCP on discharge History of CVA outpatient follow-up with PCP on discharge DIET: Regular diet DVT PROPHYLAXIS: None GI PROPHYLAXIS:: None BOWEL REGIMEN: None CODE STATUS: Goal of care discussed for more than 19 minutes, full code DISPOSITION: Med/surge PCP: Patient does not have one. Advised to follow up with [facility] on discharge Patient's status and plan discussed with the patient. Case discussed with Dr. Rhodes Plan discussed with: Patient My Orders My Orders Orders - PHOENIX KWON Procedure Category Date Status Time Sodium Chloride 0.9% PHA 04/10/25 In Process 09:15 Kidney US 04/10/25 Resulted 09:15 Complete Blood Count LAB 04/10/25 In Process 13:51 Comprehensive LAB 04/10/25 In Process Metabolic Panel 13:51 Date of Service: Apr 10, 2025 Billing Provider: MALDONADO RHODES MD Common Visit Codes: [id number] INP/OBS CARE(HIGH) PHOENIX KWON Apr 10, 2025 15:06 MALDONADO RHODES MD Apr 17, 2025 20:42
[2025-04-10 15:11] LABS: Alanine Aminotransferase 14 U/L (7-40); Albumin 4.5 g/dL (3.2-4.8); Alkaline Phosphatase 84 U/L (46-116); Anion Gap 11 (5-15); BUN/Creatinine Ratio 13.0 (10.0-20.0); Bilirubin, Total 0.7 mg/dL (0.2-1.0); Calcium 9.3 mg/dL (8.7-10.4); Carbon Dioxide 28 mmol/L (20-31); Chloride 104 mmol/L (98-107); Potassium 3.5 mmol/L (3.5-5.1); Sodium 143 mmol/L (136-145); Total Protein 7.5 g/dL (5.7-8.2)
[2025-04-10 15:12] LABS: Blood Urea Nitrogen 24 mg/dL (9-23); Glucose 143 mg/dL (74-106)
[2025-04-10 17:00] VITALS: BP 115/62; PULSE 72; RESP 16; TEMP 97.8; O2SAT 90
[2025-04-10] MEDS: TAMSULOSIN HYDROCHLORIDE 0.4 MG CAP PO SCH (18:03)
[2025-04-10 21:00] VITALS: BP 120/57; PULSE 77; RESP 19; TEMP 97.5; O2SAT 94
[2025-04-11 01:00] VITALS: BP 113/47; PULSE 61; RESP 18; TEMP 97.5; O2SAT 94
[2025-04-11 05:00] VITALS: BP 122/48; PULSE 62; RESP 17; TEMP 97.3; O2SAT 94
[2025-04-11 06:40] LABS: Alanine Aminotransferase 24 U/L (7-40); Albumin 4.0 g/dL (3.2-4.8); Alkaline Phosphatase 77 U/L (46-116); Anion Gap 11 (5-15); BUN/Creatinine Ratio 16.2 (10.0-20.0); Blood Urea Nitrogen 23 mg/dL (9-23); Calcium 9.1 mg/dL (8.7-10.4); Carbon Dioxide 26 mmol/L (20-31); Chloride 105 mmol/L (98-107); Potassium 4.2 mmol/L (3.5-5.1); Sodium 142 mmol/L (136-145); Total Protein 6.4 g/dL (5.7-8.2)
[2025-04-11 06:41] LABS: Bilirubin, Total 0.6 mg/dL (0.2-1.0)
[2025-04-11 06:42] LABS: Hematocrit 38.9 % (41.0-53.0); Hemoglobin 12.3 g/dL (13.5-17.5); Mean Corpuscular Hemoglobin 25.8 pg (28.0-32.0); Mean Corpuscular Volume 82.0 fL (80.0-100.0); Nucleated Red Blood Cells % 0.6 %
[2025-04-11 06:52] LABS: Glucose 107 mg/dL (74-106)
[2025-04-11 08:15] LABS: Giant Platelets Few
[2025-04-11 09:00] VITALS: BP 134/75; PULSE 64; RESP 16; TEMP 97.8; O2SAT 94
[2025-04-11 09:07] LABS: Prostate Specific Antigen 17.8 ng/mL (0.0-4.0)
[2025-04-11] MEDS ORDERED: TAMS-35 PO (10:50)
--- NOTE | 2025-04-11 16:19 | DVHDSRES ---
Discharge Summary Date of Admission Resident Creating Document: PHOENIX KWON RESIDENT Apr 09, 2025 at 23:54 Date of Discharge: Apr 11, 2025 Labs/Diagnostic Data: Laboratory Results Test 04/11/25 05:48 04/10/25 10:48 04/10/25 05:31 04/10/25 02:00 White Blood Count 4.0 10^3/uL (4.4-10.8) Red Blood Count 4.75 10^6/uL (4.5-5.90) Hemoglobin 12.3 g/dL (13.5-17.5) Hematocrit 38.9 % (41.0-53.0) Mean Corpuscular Volume 82.0 fL (80.0-100.0) Mean Corpuscular Hemoglobin 25.8 pg (28.0-32.0) Mean Corpuscular Hemoglobin Concent 31.5 g/dL (32.0-36.0) Red Cell Distribution Width 14.0 % (11.8-14.3) Platelet Count 152 10^3/uL (140-450) Mean Platelet Volume 10.9 fL (6.9-10.8) Neutrophils (%) (Auto) 36.1 % (37.0-80.0) Lymphocytes (%) (Auto) 49.9 % (10.0-50.0) Monocytes (%) (Auto) 11.3 % (0.0-12.0) Eosinophils (%) (Auto) 2.0 % (0.0-7.0) Basophils (%) (Auto) 0.7 % (0.0-2.0) Neutrophils # (Auto) 1.4 10 ^3/uL (1.6-8.6) Lymphocytes # (Auto) 2.0 10 ^3/uL (0.4-5.4) Monocytes # (Auto) 0.4 10 ^3/uL (0-1.3) Eosinophils # (Auto) 0.1 10 ^3/uL (0-0.8) Basophils # (Auto) 0 10 ^3/uL (0-0.2) Nucleated Red Blood Cells 0.6 % Platelet Estimate Adequate Large Platelets Few Giant Platelets Few Poikilocytosis (manual) Slight Sodium Level 142 mmol/L (136-145) Potassium Level 4.2 mmol/L (3.5-5.1) Chloride Level 105 mmol/L (98-107) Carbon Dioxide Level 26 mmol/L (20-31) Anion Gap 11 (5-15) Blood Urea Nitrogen 23 mg/dL (9-23) Creatinine 1.42 mg/dL (0.700-1.30) Glomerular Filtration Rate Calc 51 mL/min (>90) BUN/Creatinine Ratio 16.2 (10.0-20.0) Serum Glucose 107 mg/dL (74-106) Calcium Level 9.1 mg/dL (8.7-10.4) Total Bilirubin 0.6 mg/dL (0.2-1.0) Aspartate Amino Transferase (AST) 41 U/L (13-40) Alanine Aminotransferase (ALT) 24 U/L (7-40) Alkaline Phosphatase 77 U/L (46-116) Total Protein 6.4 g/dL (5.7-8.2) Albumin 4.0 g/dL (3.2-4.8) Urine Creatinine 138.01 mg/dL (30.0-125.0) Urine Sodium 71 mmol/L (40-220) Direct Bilirubin 0.2 mg/dL (<0.3) B-Type Natriuretic Peptide 5.19 pg/mL (0-100) Free Prostate Specific Antigen 2.70 ng/mL (N/A) Percent Free Prostate Specific Ag 15.2 % (.) Prostate Specific Antigen Total 17.8 ng/mL (0.0-4.0) Thyroid Stimulating Hormone (TSH) 0.92 uIU/mL (0.55-4.78) Urine Color Light-yellow (Yellow) Urine Clarity Clear (Clear) Urine pH 5.5 (5.0-9.0) Urine Specific [place] 1.016 (1.001-1.035) Urine Protein Negative (Negative) Urine Ketones Negative (Negative) Urine Blood Negative /uL (Negative) Urine Nitrite Negative (Negative) Urine Bilirubin Negative (Negative) Urine Urobilinogen Normal mg/dL (Negative) Urine Leukocyte Esterase Negative /uL (Negative) Urine RBC <1 /hpf (0 - 3) Urine Microscopic WBC 2 /HPF (0-3) Urine Squamous Epithelial Cells Few /hpf (<5) Urine Bacteria None seen /hpf (None Seen) Urine Hyaline Casts Few /lpf (0 - 2) Urine Glucose Normal mg/dL (Normal) Urine Opiates Screen Neg (NEGATIVE) Urine Fentanyl Screen Neg (NEGATIVE) Urine Barbiturates Screen Neg (NEGATIVE) Urine Phencyclidine Screen Neg (NEGATIVE) Urine Amphetamines Screen Neg (NEGATIVE) Urine Benzodiazepines Screen Neg (NEGATIVE) Urine Cocaine Screen Neg (NEGATIVE) Urine Cannabinoids Screen Neg (NEGATIVE) Other Laboratory Tests 04/11/25 05:48 Brief Hx & Hospital Course: Patient is a 79-year-old male with past medical history of HTN, Anxiety, PTSD, presented to [facility] ED with complaint of urinary retention. Patient reports being a resident at [facility] and was sent to the ED by facility staff due to concerns of altered mental status. However, the patient denies feeling altered and states his primary issue is being unable to urinate all day today. He denies associated abdominal pain, penile pain, fever, chills, or other symptoms.Bladder ultrasound showed distended urinary bladder with wall thickening and prostatomegaly. Patient admits to decreased hydration and prolonged fasting.Possible acute Urinary retention due to dehydration from fasting . He also complains of increased frequency of micturition especially at night. Patient was treated with IV fluids, tamsulosin. During hospitalization renal function improved and the patient was clinically better, able to pass urine. Hence the patient is being discharged. Condition at Discharge: Fair Final Diagnosis/Problems List TANI on CKD, possibly due to VM[facility] Acute Urinary retention due to dehydration from fasting Essential hypertension Dyslipidemia Anxiety History of CVA Discharge Disposition: Home Discharge Instruct/Medications Diet: Renal Diet comment: Counseled patient to avoid dieting for prollonged periods Activity: No Restrictions, As Tolerated Follow Up/Referral: Follow up with PCP in 7 days Follow up with DC clinic on Wednesday Scheduled Losartan Potassium & Hydrochlo (Hyzaar), 150 MG PO DAILY Nifedipine (Nifedipine ER), 90 MG PO DAILY Tamsulosin Hcl (Flomax), 0.4 MG PO QPM Discharge Statement: "Patient was advised to return to the ER or call 911 if any headaches, dizziness, shortness of breath, chest pain, abdominal pain, bleeding, fevers, or worsening of medical condition. Patient was counseled about treatment plan, medications, possible side effects, patientverbalized understanding. All questions were answered to the best of my ability. This discharge took greater then 30 minutes in planning, reviewing documentation, counseling the patient, and discussing with other team members." ASSESSMENT ASSESSMENT Assessment TANI on CKD Date of Service: Apr 11, 2025 Billing Provider: MALDONADO KUMAR MD Common Visit Codes: [id number] DISCH DAY >30min PH[place]EN[place] KWON RESIDENT Apr 11, 2025 16:13 MALDONADO KUMAR MD Apr 17, 2025 20:43
== END 2025-04-11 14:39 | disposition home or self-care (01) | DRG 640 ==
LOC: EDBD 20:28 → ER 20:28 → OVERFLOW 23:54 → EAST 04-10 01:52
PROVIDERS: ADMIT Internal Medicine Geriatric Medicine; ATTEND Internal Medicine Geriatric Medicine
DX: E86.0 Dehydration (principal); N17.0 Acute kidney failure with tubular necrosis; N40.1 Benign prostatic hyperplasia with lower urinary tract symptoms; F41.9 Anxiety disorder, unspecified; E78.5 Hyperlipidemia, unspecified; F43.10 Post-traumatic stress disorder, unspecified; I12.9 Hypertensive chronic kidney disease with stage 1 through stage 4 chronic kidney disease, or unspecified chronic kidney disease; N18.9 Chronic kidney disease, unspecified; Z86.73 Personal history of transient ischemic attack (TIA), and cerebral infarction without residual deficits; R33.8 Other retention of urine
CPT/HCPCS: 36415; 70450; 74176; 76775; 76857; 80048; 80053; 80076; 80307; 81001; 82570; 83880; 84154; 84300; 84443; 85025; 87086; 96374; G0378